=== PATIENT | female | born 1955 | race Caucasian/White ===

== ENCOUNTER → 2016-09-01 | Day surgery (SDC) | payer OTHER ==
[2016-08-18 14:02] VITALS: Ht 165.1 cm; Wt 79.5 kg
[~2016-09-01] VITALS: Ht 165.1 cm; Wt 79.5 kg
[~2016-09-01] MED LIST: ATOR10TA88 PO; ATROPINE SULFATE 0.1 MG/ML 5ML SYR IV PRN; BUPIVACAINE/EPINEPHRINE 0.25% 1:200,000 30 ML VIAL ONE; CEFAZOLIN 2000 MG/60 ML D5W IV SCH; CETI10TA84 PO; CHOL20009 PO; CIPR-255 PO; CRAN1CAP15 PO; DIPH25CA65 PO; EpHEDrine SULFATE INJ 50 MG/ML AMP IV PRN; EpINEphrine INJ 1MG/ML AMP 1 MG/ML AMP ONE; FENTANYL CITRATE INJ 50 MCG/1 ML 2 ML VIAL IV PRN; GLUC1CAP35 PO; IBUP1CAP9 PO; KETO10TA PO; LACTATED RINGER'S 1000ML 1,000 ML IV SCH; MULT-506 PO; OMEG10007 PO; ONDA4TAB10 SL; ONDANSETRON INJ 2 MG/ML 2 ML VIAL IV PRN; OXYC-57 PO; OXYCODONE/ACETAMINOPHEN 5-325 TAB PO PRN; ROPIVACAINE 0.5% 5 MG/ML 30 ML VIAL ONE; SODIUM CHLORIDE 0.9% 1000ML 1,000 ML IV SCH
--- NOTE | 2016-09-01 08:01 | History & Physical Bridge - [place] ---
H&P Re-Evaluation Bridge Note: I have examined the patient, reviewed the History & Physical and in the interval since the performance of the History & Physical I have noted the following changes of clinical significance: No changes noted
--- NOTE | 2016-09-01 10:29 | [facility] Post Operative Brief Note ---
Immediate Operative Summary Operative Date Sep 01, 2016. Pre-Operative Diagnosis Right Shoulder Full Thickness Rotator Cuff Tear Post-Operative Diagnosis Same Procedure(s) Performed Right Shoulder Arthroscopy, Medium Rotator Cuff Repair, Acromioplasty, Biceps Tenotomy Surgeon Dr. Miner Inspector Purchased Parts Surgeon(s) Karen Dover PA-C Estimated Blood Loss 5ml Findings as above Specimens None Complication(s) None Disposition Recovery Room / PACU
--- NOTE | 2016-09-01 10:41 | Discharge Instructions-SurgCtr ---
Discharge Instructions Visit Reason for Visit: Right Shoulder Full Thickness Rotator Cuff Tear Discharge Discharge Diagnosis / Problem: right shoulder rotator cuff tear Discharge Goals Goal(s): Decrease discomfort, Improve function, Therapeutic intervention Medications Stopped Medications Name(s): ibuprofen, glucosamine, and supplements stopped 08/23/16. Restart Stopped Medication(s): stop ibuprofen while taking toradol Activity Recommendations Activity Limitations: per Instructions/Follow-up section limited use of right arm Anesthesia . Post Anesthesia Instructions: If you have had General Anesthesia or IV Sedation: * Do not drive today. * Resume driving when surgeon permits. * Do not make important decisions or sign legal documents today. * Call surgeon for: 1. Temperature elevations greater than 101 degrees F. 2. Uncontrollable pain. 3. Excessive bleeding. 4. Persistent nausea and vomiting. 5. Medication intolerance (nausea, vomiting or rash). * For nausea and vomiting use only clear liquids such as: tea, soda, bouillon until nausea subsides, then gradually increase diet as tolerated. * If you have any concerns or questions, call your surgeon's office. If physician is unavailable and it is an emergency, call 911 or go to the nearest emergency room. . Instructions / Follow-Up Instructions / Follow-Up MEDICATIONS: * Resume previous medications unless instructed otherwise by your surgeon. * Always take pain medication on a full stomach or with food to avoid upset stomach. * Do not drink alcohol or drive while taking narcotics. * Ibuprofen or Tylenol may be taken if narcotic not needed. no ibuprofen while taking toradol SPECIAL CARE INSTRUCTIONS: __ None _x_ Keep extremity iced x 48 hours; apply ice 20-30 minutes 8-10 times/day. May remove at night. __ Sling __24 hrs/day __ Remove at night _x_ Shoulder Immobilizer _x_ 24 hrs/day __ Remove at night _x_ Dressing __ Maintain until seen in office, may shower with plastic over site _x_ Remove dressings in 48 hours and then may shower _x_ Cover incisions with band-aids after showering __ Do not remove steri-strips Call physician if chills or temperature rises above 102 degrees or pain unrelieved by prescribed pain medications at . follow up in 2 weeks . Diet Recommendations Home Diet: resume previous diet Procedures Procedures Performed: Right Shoulder Arthroscopy, Medium Rotator Cuff Repair, Acromioplasty, Biceps Tenotomy Pending Studies Studies pending at discharge: no Medical Emergencies . Who to Call and When: Medical Emergencies: If at any time you feel your situation is an emergency, please call 911 immediately. . Non-Emergent Contact Non-Emergency issues call your: Primary Care Provider, Surgeon . . "Provider Documentation" section prepared by Igor Dover.
[2016-09-01 11:31] VITALS: TEMP 36.4
[2016-09-01 11:47] VITALS: BP 130/77; PULSE 83; O2SAT 97
--- NOTE | 2016-09-01 11:57 | Anesthesia Progress Nt - [facility] ---
Anesthesia Post Op Note Date & Time Sep 01, 2016 at 11:57 Vital Signs Pain Intensity: 0 Vital Signs Past 12 Hours Date Time Temp Pulse Resp B/P Pulse Ox O2 Delivery O2 Flow Rate FiO2 09/01/16 11:47 83 16 130/77 97 Room Air 09/01/16 11:31 36.4 71 14 139/85 98 Room Air 09/01/16 11:09 87 17 95 09/01/16 11:09 87 17 09/01/16 11:08 147/86 09/01/16 11:06 36.2 84 19 147/86 96 Room Air 09/01/16 11:04 89 21 97 09/01/16 11:04 87 21 09/01/16 11:03 140/87 09/01/16 11:01 148/88 09/01/16 10:59 88 21 98 09/01/16 10:59 88 21 09/01/16 10:58 152/93 09/01/16 10:54 85 19 100 09/01/16 10:54 85 19 09/01/16 10:53 139/75 09/01/16 10:49 87 19 09/01/16 10:49 87 19 100 09/01/16 10:48 138/95 09/01/16 10:44 77 16 100 09/01/16 10:44 77 16 09/01/16 10:43 145/86 09/01/16 10:41 36.3 85 16 153/82 100 Diffusion Mask 6 09/01/16 10:39 72 15 100 09/01/16 10:39 74 15 09/01/16 10:38 147/89 09/01/16 10:36 153/82 09/01/16 08:54 12 09/01/16 08:53 115/73 09/01/16 08:50 69 16 99 09/01/16 08:50 69 09/01/16 08:49 70 09/01/16 08:49 71 18 99 09/01/16 08:48 112/75 09/01/16 08:44 77 20 99 09/01/16 08:44 76 09/01/16 08:43 120/72 09/01/16 08:41 85 09/01/16 08:41 84 20 100 09/01/16 08:40 70 09/01/16 08:40 70 17 99 09/01/16 08:38 115/65 09/01/16 08:35 71 17 99 09/01/16 08:35 73 09/01/16 08:34 72 09/01/16 08:34 72 18 99 09/01/16 08:33 104/72 09/01/16 08:29 70 09/01/16 08:29 68 19 100 09/01/16 08:28 118/81 09/01/16 08:26 77 18 99 09/01/16 08:26 77 09/01/16 08:23 151/90 09/01/16 08:21 73 09/01/16 08:21 72 17 100 09/01/16 08:20 73 09/01/16 08:20 72 12 100 09/01/16 08:19 140/97 09/01/16 08:18 72 09/01/16 08:18 72 0 97 09/01/16 08:13 73 0 09/01/16 08:08 74 0 09/01/16 07:58 0 09/01/16 07:47 137/90 09/01/16 07:44 36.7 73 16 137/90 97 Room Air Notes Mental Status: alert / awake / arousable, participated in evaluation Pt Amnestic to Procedure: Yes Nausea / Vomiting: adequately controlled Pain: adequately controlled Airway Patency, RR, SpO2: stable & adequate BP & HR: stable & adequate Hydration State: stable & adequate Anesthetic Complications: no major complications apparent
--- NOTE | 2016-09-01 12:45 | OPERATIVE REPORT ---
DATE OF OPERATION: 09/01/2016 PREOPERATIVE DIAGNOSIS: Severe external impingement with medium sized degenerative rotator cuff tear. POSTOPERATIVE DIAGNOSIS: Same. PROCEDURE: Right shoulder diagnostic arthroscopy with limited debridement, acromioplasty, medium sized degenerative crescent shaped rotator cuff repair and biceps tenotomy. SURGEON: Dr. Antonio Miner. BAND MAKER: Clarence Dover PA-C, whose assistance was necessary for positioning the arm and helping with instrumentation. ANESTHESIA: General with a right interscalene nerve block. COMPLICATIONS: None. CONDITION: Stable to PACU. INDICATIONS: Stacy is a pleasant 61-year-old female who has been dealing with a greater than 1 year history of right shoulder pain. She does not recall any traumatic event. MRI and clinical examination were diagnostic for severe external impingement with medium size cuff tear. After failing conservative treatment, she elected to undergo arthroscopy. DESCRIPTION OF PROCEDURE: On 09/01/2016, she arrived at [facility] for the above procedure. She was seen in the preoperative holding area and the operative extremity was identified and signed. She was given a preoperative antibiotic and a right interscalene nerve block. She was taken back to the operating room, laid on the table in supine position and put under general anesthesia. She was then put into the beachchair position. The right shoulder was prepped and draped in sterile fashion. Time-out was done and the patient and operative extremity was properly identified. A scope was introduced in the posterior portal. Diagnostic arthroscopy showed no cartilage damage to the humeral head or the glenoid. There was some fraying of the labrum. There was a little fraying on the anterior aspect of the biceps tendon. The subscapularis was intact. There was a tear of the entire supraspinatus. The infraspinatus and teres minor were intact. An anterior portal was made. A shaver was used to do a limited debridement of the intraarticular structures and the biceps tendon was arthroscopically tenotomized. The scope was then put into the subacromial space. A lateral portal was made. A shaver was used to do a complete subacromial and subdeltoid bursectomy. An ablator was used to tease the coracoacromial ligament off the undersurface of the acromion and a 5-0 ellis was used to complete an acromioplasty of a Bigliani type 3 acromion. A shaver was used to remove any excess debris and attention was turned to the rotator cuff. An additional anterolateral portal was made and Sofia cannulas were placed in each of the lateral portals. The greater tuberosity was prepared with a ring curette and a microfracture. The rotator cuff was then fixed with an Arthrex SpeedBridge configuration using 4.75 mm BioComposite SwiveLock suture anchors. This gave a nice repair. Multiple pictures were taken, the scope was placed back into the glenohumeral joint and the articular margin of the rotator cuff had been restored. Pictures were taken. Arthroscopic instruments were removed from the shoulder. Portal sites were closed with 3-0 nylon. She was then placed in a soft dressing and an abduction arm sling. She was then extubated, transferred to a litter and taken to the postanesthesia care unit in stable condition. She tolerated the procedure well. I attest to the content of the Intraoperative Record and any orders documented therein. Any exceptio ns are noted below.
== END | disposition home or self-care (01) ==
LOC: X.SURG 07:31
PROVIDERS: ATTEND Orthopaedic Surgery
DX: M75.101 Unspecified rotator cuff tear or rupture of right shoulder, not specified as traumatic (principal); M25.611 Stiffness of right shoulder, not elsewhere classified; Z90.49 Acquired absence of other specified parts of digestive tract; Z83.3 Family history of diabetes mellitus

== ENCOUNTER 2016-09-13 06:01 | Emergency (ER) | payer OTHER ==
[~2016-09-13] VITALS: Ht 165.1 cm; Wt 80.7 kg
[~2016-09-13 06:01] MED LIST changes: -ATROPINE SULFATE 0.1 MG/ML 5ML SYR IV PRN; -BUPIVACAINE/EPINEPHRINE 0.25% 1:200,000 30 ML VIAL ONE; -CEFAZOLIN 2000 MG/60 ML D5W IV SCH; -CIPR-255 PO; -EpHEDrine SULFATE INJ 50 MG/ML AMP IV PRN; -EpINEphrine INJ 1MG/ML AMP 1 MG/ML AMP ONE; -FENTANYL CITRATE INJ 50 MCG/1 ML 2 ML VIAL IV PRN; -IBUP1CAP9 PO; -KETO10TA PO; -LACTATED RINGER'S 1000ML 1,000 ML IV SCH; -ONDA4TAB10 SL; -ONDANSETRON INJ 2 MG/ML 2 ML VIAL IV PRN; -OXYCODONE/ACETAMINOPHEN 5-325 TAB PO PRN; -ROPIVACAINE 0.5% 5 MG/ML 30 ML VIAL ONE; -SODIUM CHLORIDE 0.9% 1000ML 1,000 ML IV SCH
[2016-09-13 06:07] VITALS: TEMP 36.4; Ht 165.1 cm; Wt 80.7 kg
[2016-09-13] MEDS ORDERED: SODIUM CHLORIDE 0.9% 1000ML 1,000 ML IV STA (06:45)
[2016-09-13] MEDS ORDERED: ONDANSETRON INJ 2 MG/ML 2 ML VIAL IV STA (06:45)
[2016-09-13 07:02] LABS: BASO % 0.1 %; BASO ABS # 0.01 K/uL (0-0.2); COMPLETE YES; HEMATOCRIT 34.6 % (37-47); IG% 0.2 %; LYMPH % 5.8 %; LYMPH ABS # 0.84 K/uL (1.2-3.4); MEAN CORPUSCULAR HEMOGLOBIN 32.1 pg (25-34); MEAN CORPUSCULAR HGB CONC 36.4 g/dl (32-36); MEAN PLATELET VOLUME 9.6 fL (7.4-10.4); MONO % 6.3 %; NEUT % 87.6 %; PLATELET COUNT 186 K/uL (130-400); RED BLOOD COUNT 3.93 M/uL (4.2-5.4); WHITE BLOOD COUNT 14.52 K/uL (4.8-10.8)
[2016-09-13 07:22] LABS: BUN/CREATININE RATIO 18.9 (10-20); CALCIUM 9.1 mg/dl (8.5-10.1); CREATININE 1.1 mg/dl (0.60-1.20); POTASSIUM 3.3 mmol/L (3.5-5.1)
[2016-09-13] MEDS ORDERED: ONDA4TAB10 SL (09:17)
--- NOTE | 2016-09-13 09:17 | EMERGENCY ROOM VISIT NOTE ---
History Report prepared by Maria Isabelibmellisa: Laura Hernandez Under the Supervision of: Riki AlvaradoO. First contact with patient: 06:40 Chief Complaint: VOMITING Stated Complaint: NOT HOLDING FOOD DOWN SINCE Monday09/11/16 Nursing Triage Summary: Pt reports nausea and vomiting since Monday. Denies any diarrhea or abdominal pain. Pt had right shoulder surgery on 09-01 and stopped taking Oxycodone 09-05. Pt was concerned it was from stopping the pain medication. Denies any shoulder pain. History of Present Illness The patient is a 61 year old female who presents to the Emergency Room with complaints of nausea and vomiting starting 3 days ago. She has worsening symptoms with eating and drinking. She currently denies any pain. She reports a subjective fever. She denies abdominal pain, diarrhea, urinary symptoms, or any other complaints. The patient recently had a right shoulder surgery. She denies any redness or pain on the shoulder. She takes a baby aspirin every day. Source of History: patient Onset: 3 days ago Position: other (global) Symptom Intensity: No pain Quality: other (nausea and vomiting) Modifying Factors (Worsening): eating, drinking Associated Symptoms: + fevers, No abdominal pain, No diarrhea, No urinary symptoms Review of Systems See HPI for pertinent positives & negatives. A total of 10 systems reviewed and were otherwise negative. Past Medical & Surgical Surgical Problems: (1) H/O shoulder surgery Family History Patient reports no known family medical history. Social History Smoking Status: Never Smoker Marital Status: Occupation Status: employed Current/Historical Medications Scheduled Atorvastatin (Lipitor), 10 MG PO QPM Cetirizine (Zyrtec), 10 MG PO QAM Cholecalciferol (Vitamin D), 1 TAB PO QAM Cranberry-Vitamin C-Vitamin E (Cranberry), 1 CAP PO QAM Diphenhydramine Hcl (Benadryl Allergy), 1 CAP PO HS Fish Oil ([place]-3), 1 CAP PO BID Nxpqwqdxiub-Dlxonnosbll-Caa C- (Glucosamine Chondroitin), 1 CAP PO BID Multivitamin (Multivitamin), 1 TAB PO QAM Ondasetron Odt (Zofran Odt), 4 MG SL Q6H Allergies Coded Allergies: Nitrofurantoin (Verified Allergy, Unknown, HIVES, 09/13/16) Physical Exam Vital Signs Date Time Temp Pulse Resp B/P Pulse Ox O2 Delivery O2 Flow Rate FiO2 09/13/16 09:30 93 18 134/73 99 Room Air 09/13/16 07:31 84 18 117/61 97 Room Air 09/13/16 06:07 36.4 100 22 125/74 100 Room Air Physical Exam CONSTITUTIONAL/VITAL SIGNS: Reviewed / noted above. GENERAL: Non-toxic in appearance. INTEGUMENTARY: Warm, dry, and [place]. HEAD: Normocephalic. EYES: without scleral icterus or trauma. ENT/OROPHARYNX: clear and moist. LYMPHADENOPATHY/NECK: Is supple without lymphadenopathy or meningismus. RESPIRATORY: Lungs clear and equal. CARDIOVASCULAR: Regular rate and rhythm. GI/ABDOMEN: Soft and nontender. No organomegaly or pulsatile mass. No rebound or guarding. Normal bowel sounds. EXTREMITIES: Warm and well perfused. Right shoulder reveals some mild ecchymosis and some healing wounds, no obvious infection or discharge. BACK: No CVA tenderness. NEUROLOGICAL: Intact without focal deficits. PSYCHIATRIC: normal affect. MUSCULOSKELETAL: Normally developed with good muscle tone. Medical Decision & Procedures Laboratory Results 09/13/16 06:58 Red Blood Count 3.93, Mean Corpuscular Volume 88.0, Mean Corpuscular Hemoglobin 32.1, Mean Corpuscular Hemoglobin Concent 36.4, Mean Platelet Volume 9.6, Neutrophils (%) (Auto) 87.6, Lymphocytes (%) (Auto) 5.8, Monocytes (%) (Auto) 6.3, Eosinophils (%) (Auto) 0.0, Basophils (%) (Auto) 0.1, Neutrophils # (Auto) 12.73, Lymphocytes # (Auto) 0.84, Monocytes # (Auto) 0.91, Eosinophils # (Auto) 0.00, Basophils # (Auto) 0.01 09/13/16 06:58 Test 09/13/16 06:58 09/13/16 09:30 White Blood Count 14.52 K/uL (4.8-10.8) Red Blood Count 3.93 M/uL (4.2-5.4) Hemoglobin 12.6 g/dL (12.0-16.0) Hematocrit 34.6 % (37-47) Mean Corpuscular Volume 88.0 fL (80-100) Mean Corpuscular Hemoglobin 32.1 pg (25-34) Mean Corpuscular Hemoglobin Concent 36.4 g/dl (32-36) Platelet Count 186 K/uL (130-400) Mean Platelet Volume 9.6 fL (7.4-10.4) Neutrophils (%) (Auto) 87.6 % Lymphocytes (%) (Auto) 5.8 % Monocytes (%) (Auto) 6.3 % Eosinophils (%) (Auto) 0.0 % Basophils (%) (Auto) 0.1 % Neutrophils # (Auto) 12.73 K/uL (1.4-6.5) Lymphocytes # (Auto) 0.84 K/uL (1.2-3.4) Monocytes # (Auto) 0.91 K/uL (0.11-0.59) Eosinophils # (Auto) 0.00 K/uL (0-0.5) Basophils # (Auto) 0.01 K/uL (0-0.2) RDW Standard Deviation 39.3 fL (36.4-46.3) RDW Coefficient of Variation 12.1 % (11.5-14.5) Immature Granulocyte % (Auto) 0.2 % Immature Granulocyte # (Auto) 0.03 K/uL (0.00-0.02) Anion Gap 13.0 mmol/L (3-11) Est Creatinine Clear Calc Drug Dose 57.8 ml/min Estimated GFR () 63.6 Estimated GFR (Non- 54.9 BUN/Creatinine Ratio 18.9 (10-20) Calcium Level 9.1 mg/dl (8.5-10.1) Total Bilirubin 1.0 mg/dl (0.2-1) Direct Bilirubin 0.3 mg/dl (0-0.2) Aspartate Amino Transf (AST/SGOT) 13 U/L (15-37) Alanine Aminotransferase (ALT/SGPT) 23 U/L (12-78) Alkaline Phosphatase 81 U/L (45-117) Total Protein 7.3 gm/dl (6.4-8.2) Albumin 2.8 gm/dl (3.4-5.0) Lipase 63 U/L (73-393) Laboratory results as stated above per my review. Medications Administered Medications (Trade) Dose Ordered Sig/Peyton Route Start Time Stop Time Status Last Admin Dose Admin Sodium Chloride (Nss 1000ml) 1,000 ml @ 999 mls/hr Q1H1M STAT IV 09/13/16 06:45 09/13/16 07:45 DC 09/13/16 06:56 999 MLS/HR Ondansetron HCl (Zofran Inj) 4 mg NOW STAT IV 09/13/16 06:45 09/13/16 06:47 DC 09/13/16 06:57 4 MG ED Course 0640: Previous medical records were reviewed. The patient was evaluated in room B02. A complete history and physical examination was performed. 0645: Zofran Inj 4 mg IV, Sodium Chloride 1000 ml @ 999 mls/hr IV 0918: On reevaluation, the patient is resting comfortably. I discussed the results and findings with the patient. She verbalized agreement of the treatment plan. She was discharged home. 0932: Rocephin 1 gm IV. Medical Decision Differential diagnosis: Etiologies such as gastroenteritis, food borne illness, infections, appendicitis , diverticulitis, inflammatory bowel disease, obstruction, GI bleed, biliary pathology, as well as others were entertained. This is a 61-year-old female who presents to the ED with a chief complaint of nausea and vomiting without pain. Her symptoms started 2 days ago. She states that her symptoms include vomiting with by mouth intake and some baseline nausea. She denies any abdominal pains. She denies any urinary symptoms. She states that on Monday she had some subjective fevers and chills. The patient states that she has been urinating a little. Her exam did not reveal any abdominal tenderness. She is in no acute distress. She had right shoulder surgery on 09/01/16. Her right shoulder exam reveals mild ecchymosis but no signs of infection. There is no redness or pain with movement. She denies any increasing pain or symptoms in her right shoulder. White blood cell reveals 14.52. BUN is 21. Glucose is 234. The patient was told results the test. She states that she is borderline diabetic. She was told to have this retested by her doctor later this week or next week. She was advised to drink more fluids. Her nausea improved with Zofran. She will be discharged on Zofran. She has no other complaints at this time. She is felt to be stable for discharge. Her symptoms might be related to a viral illness. Her urine dip didn't suggest UTI. She was given IV Rocephin here. She was also discharged on Cipro twice a day. Impression Primary Impression: Vomiting Additional Impressions: Dehydration Hyperglycemia UTI (urinary tract infection) Scribe Attestation The scribe's documentation has been prepared under my direction and personally reviewed by me in its entirety. I confirm that the note above accurately reflects all work, treatment, procedures, and medical decision making performed by me. Departure Information Dispostion Home / Self-Care Prescriptions Ciprofloxacin Hcl (CIPRO) 500 Mg Tab 500 MG PO BID, #14 TAB Prov: Anthony Bullock D.O. 09/13/16 Ondasetron Odt (ZOFRAN ODT) 4 Mg Tab 4 MG SL Q6H for Nausea, #30 TAB Prov: Anthony Bullock D.O. 09/13/16 Referrals Daniela Martin DO (PCP) Forms HOME CARE DOCUMENTATION FORM, IMPORTANT VISIT INFORMATION Patient Instructions ED Hyperglycemia New Susp Diabetes, My [facility] Additional Instructions Zofran: Allow one tablet to dissolve under the tongue every 6 hours as needed for nausea or vomiting. Cipro as prescribed for UTI. Your blood sugar today is elevated. Have your doctor retest this later this week or early next week. Drink plenty of fluids. Problem Qualifiers
[2016-09-13] MEDS ORDERED: CEFTRIAXONE SOD INJ 1 GM ADDVIAL IV STA (09:34)
[2016-09-13] MEDS ORDERED: CIPR-255 PO (09:36)
[2016-09-13 10:01] LABS: URINE APPEARANCE CLOUDY (CLEAR); URINE BILIRUBIN NEG (NEG); URINE COLOR YELLOW; URINE EPITHELIAL CELL AUTO >30 /lpf (0-5); URINE NITRITE NEG (NEG); URINE PH 5.5 (4.5-7.5); URINE SPECIFIC GRAVITY 1.014 (1.000-1.030); UROBILINOGEN NEG (NEG); ZZUR CULT IF INDIC CLEAN CATCH YES
[2016-09-13 10:06] LABS: MANUAL MICROSCOPIC REQUIRED? NO; REVIEW REQ? NO
[2016-09-13 10:43] VITALS: BP 139/68; PULSE 89; O2SAT 100
--- NOTE | 2016-09-15 11:52 | Pharmacy Progress Note ---
ED Pharmacist Culture FollowUp Date of Service: Sep 15, 2016. Patient was sent home with a prescription for ciprofloxacin, which should cover the E. coli growing from the patient's urine culture.
== END 2016-09-13 10:44 | disposition home or self-care (01) ==
LOC: C.EDB 06:03
DX: R11.2 Nausea with vomiting, unspecified (principal); E86.0 Dehydration; R73.9 Hyperglycemia, unspecified; N39.0 Urinary tract infection, site not specified; Z88.8 Allergy status to other drugs, medicaments and biological substances; Z79.82 Long term (current) use of aspirin

== ENCOUNTER → 2017-04-14 | Outpatient (CLI) | payer OTHER ==
[~2017-04-14] MED LIST changes: +CIPR-255 PO; -OXYC-57 PO
--- NOTE | 2017-04-14 12:44 | MAMMOGRAPHY REPORT ---
BILATERAL DIGITAL SCREENING MAMMOGRAM TOMOSYNTHESIS WITH CAD: 04/14/2017 CLINICAL HISTORY: Routine screening. TECHNIQUE: Breast tomosynthesis in addition to standard 2D mammography was performed. Current study was also evaluated with a Computer Aided Detection (CAD) system. COMPARISON: Comparison is made to exams dated: 04/12/2016 mammogram, 04/02/2014 mammogram, 04/08/2015 m ammogram, 04/01/2013 mammogram, 03/28/2012 mammogram, and 03/17/2011 mammogram - [facility]. BREAST COMPOSITION: There are scattered areas of fibroglandular density in both breasts. FINDINGS: No suspicious masses, calcifications, or areas of architectural distortion are noted in ei ther breast. There has been no significant interval change compared to prior exams. Left lateral glen ast asymmetry is stable compared to prior exams eating back to at least 2008, and considered benign g iven long-term stability. IMPRESSION: ACR BI-RADS CATEGORY 2: BENIGN There is no mammographic evidence of malignancy. A 1 year screening mammogram is recommended. The pa tient will receive written notification of the results. Approximately 10% of breast cancers are not detected with mammography. A negative mammographic report should not delay biopsy if a clinically suggestive mass is present. Jelena Yañez M.D. /:04/14/2017 07:39:09 Spiritual Advisor: Andriy HI(Dalila)(M), [facility] letter sent: Normal 1/2 BI-RADS Code: ACR BI-RADS Category 2: Benign
== END | disposition home or self-care (01) ==
LOC: C.MAMM 07:08
PROVIDERS: ATTEND Obstetrics & Gynecology
DX: Z12.31 Encounter for screening mammogram for malignant neoplasm of breast (principal)

== ENCOUNTER → 2017-04-25 | Outpatient (CLI) | payer OTHER | END | disposition home or self-care (01) | LOC: C.PAPS 10:01 | PROVIDERS: ATTEND Obstetrics & Gynecology | DX: Z12.4 Encounter for screening for malignant neoplasm of cervix (principal) ==